=== PATIENT | female | born 1965 ===

== ENCOUNTER 2017-08-22 10:08 | Outpatient (CLI) | payer OTHER ==
[~2017-08-22 10:08] MED LIST: CATAFLAM50 MG PO; CIPRO500 MG PO; COZAAR25 MG; VASOTEC2.5 MG PO
== END 2017-08-22 10:24 | disposition home or self-care (01) ==
LOC: RAD 501 10:08
DX: I11.9 Hypertensive heart disease without heart failure (principal)

== ENCOUNTER 2018-02-26 16:33 | Emergency (ER) | payer OTHER ==
[~2018-02-26] VITALS: Ht 165.1 cm; Wt 77.1 kg
[2018-02-26] MEDS ORDERED: CRESTOR10 MG (16:50)
== END 2018-02-26 18:03 | disposition home or self-care (01) ==
LOC: ER 16:33
DX: J06.9 Acute upper respiratory infection, unspecified (principal)

== ENCOUNTER 2020-02-22 08:13 | Emergency (ER) | payer OTHER ==
[~2020-02-22] VITALS: Ht 162.6 cm; Wt 99.8 kg
[~2020-02-22 08:13] MED LIST changes: +CRESTOR10 MG
== END 2020-02-22 15:26 | disposition home or self-care (01) ==
LOC: ER 08:13
DX: N20.0 Calculus of kidney (principal)

== ENCOUNTER 2021-01-17 17:23 | Emergency (ER) | payer OTHER ==
[~2021-01-17] VITALS: Ht 162.6 cm; Wt 104.3 kg
== END 2021-01-18 00:29 | disposition home or self-care (01) ==
LOC: ER 17:23
DX: R00.2 Palpitations (principal)

== ENCOUNTER 2022-12-03 17:41 | Emergency (ER) | payer OTHER ==
[~2022-12-03] VITALS: Ht 162.6 cm; Wt 104.3 kg
[2022-12-03] MEDS ORDERED: CARDIZEM CD240 MG PO (17:52)
[2022-12-03] MEDS ORDERED: CELEBREX200MG PO (22:02)
[2022-12-03] MEDS ORDERED: MEDROLPACK PO ×3 (22:02→22:04)
== END 2022-12-03 22:15 | disposition home or self-care (01) ==
LOC: ER 17:41
DX: M75.32 Calcific tendinitis of left shoulder (principal)